=== PATIENT | male | born 1960 | race Caucasian/White ===

== ENCOUNTER 2018-04-10 14:35 | Emergency (ER) | payer BC, SELFPAY ==
[2018-04-10 14:35] VITALS: BP 168/85; PULSE 74; RESP 16; TEMP 36.7; O2SAT 98; BMI 41.1
--- NOTE | 2018-04-10 15:26 | RAD_ITS ---
STUDY: X-RAY - RIGHT FOOT CLINICAL: Male, 58 years old. Stepped on a piece of glass TECHNIQUE: 3 view(s) of the foot. COMPARISON: None. FINDINGS: Normal talus, calcaneus, and tarsal bones. Normal visualized subtalar, talonavicular, calcaneocuboid, tarsal and tarsometatarsal articulations. Normal metatarsi. There is degenerative arthrosis of the metatarsophalangeal joint of the hallux with a hallux valgus deformity. Normal tibial and fibular sesamoid bones. Normal interphalangeal joint of the great toe. Normal phalanges of the great toe. Normal second through fifth metatarsophalangeal joints. Normal interphalangeal joints and phalanges of the lesser toes. The soft tissue structures are unremarkable. RAD/Foot min 3 Views IMPRESSION: No radiopaque foreign body. Electronically Signed: Lizandro Gamez MD at 16:42 EST , Service support ,
--- NOTE | 2018-04-10 15:29 | ED.DCSUM_ITS ---
- ER Visit Summary Date of Service: 04/10/18 Chief Complaint: [] Glass foreign body right foot History of Present Illness: The patient is a 58 M [] stepped on glass bottle feels foreign body retained could not get it out not sure about tetanus status would like to check with family doctor before he is given tetanus update no other complaints Physical Examination: [] His general exam is unremarkable see the template, his right foot there is a small curvilinear laceration to the ball of the plantar surface right foot there is an obvious foreign body there, the rest of the foot is unremarkable this appears superficial, the area was locally blocked with lidocaine cleansed irrigated and then remove the foreign body removed without difficulty no retained foreign body was apparent afterwards, it was cleansed and irrigated again, sterile dressing was applied x-rays obtained X-ray shows no signs of retained foreign body he understands the concept of occult injury other occult processes, he is instructed on wound care Keflex both his family doctor the next few days return for change in symptoms or signs of Test Results: [] Emergency Department Course and Treatment: [] Treatment Plan: [] Disposition: [] Home stable Impression: [] Glass foreign body plantar surface right foot removed This note was generated with [employer] dictation software. It may contain incorrect words, spelling, and punctuation that were not noted in review of the chart prior to signing ED Disposition - Plan for ED Patient: Chief Complaint: Foreign Body
--- NOTE | 2018-04-10 15:29 | ED.DEP ---
ED Disposition - Plan for ED Patient: Chief Complaint: Foreign Body Instructions: ED Foreign Body Soft Tissue, ED Wound Puncture Foot Prescriptions: Cephalexin [Keflex] 500 mg PO Q6 #40 cap
[2018-04-10] MEDS: Cephalexin 250 MG Capsule 500 MG PO (16:01)
[2018-04-10 17:06] VITALS: BP 138/76; PULSE 82; RESP 16; O2SAT 98
== END 2018-04-10 17:07 | disposition home or self-care (01) ==
LOC: ED 15:49
PROVIDERS: Emergency Provider Emergency Medicine; Family Provider Family Medicine; PCP Family Medicine
DX: S90.851A Superficial foreign body, right foot, initial encounter (principal); W45.8XXA Other foreign body or object entering through skin, initial encounter; W25.XXXA Contact with sharp glass, initial encounter; Z18.81 Retained glass fragments
CPT/HCPCS: 73630; 99283

== ENCOUNTER 2018-07-20 21:00 | Emergency (ER) | payer BC, SELFPAY ==
[2018-07-20 21:00] VITALS: BP 133/86; PULSE 110; RESP 22; TEMP 36; O2SAT 100; BMI 42.5
--- NOTE | 2018-07-20 22:13 | ED.DCSUM_ITS ---
- ER Visit Summary Date of Service: 07/20/18 Chief Complaint: Lower leg laceration History of Present Illness: The patient is a 58 M was playing adult hockey league when he caught his ski and accidentally lacerated his left lower leg with his ice skate. Denies any other injuries. Does not believe his tetanus is up-to-date. Said there was pulsatile bleeding at the scene. Physical Examination: Well-appearing middle-aged male. Vital signs are stable. He is afebrile. HEENT exam unremarkable atraumatic neck nontender. Lungs clear to auscultation bilaterally. Heart regular rhythm no murmur. Chest wall nontender. Abdomen soft nontender. Extremities moves all 4. Neurovascular intact. His left lower leg anteriorly just above the ankle there is about 3 cm laceration. Involves the skin and subcu tissue. Dorsi and plantar flexion are intact. Currently there is no active bleeding but there is bleeding all over his sock and shoe. DP pulse appears to be intact. Left foot is neurovascular intact he is able to wiggle his toes. Normal touch sensation. Normal cap refil l. Foot is warm to the touch. No bony deformities. Left hip and knee are unremarkable. Test Results: None Emergency Department Course and Treatment: Let will be applied to the wound. Procedure note: Left lower leg laceration ER repair. Topical anesthetic with let. Locally anesthetized with lidocaine. Wound washed and irrigated thoroughly. With normal saline. Explored. Closed using simple interrupted 4-0 Ethilon sutures. Placed 6 simple interrupted sutures patient tolerated procedure well. Proper hemostasis and wound closure obtained. Patient tolerated procedure well. No bleeding while in the emergency department. Left foot warm and neurovascular intact with palpable DP pulse. Normal cap refill. Normal sensation. Treatment Plan: Wound care. Ice and elevate. Antibiotic ointment daily. Return for any signs of infection. Suture removal in 7-10 days. Patient does return if severe bleeding or significant swelling to his left lower extremity. Disposition: Discharge Impression: Acute left lower leg laceration 3 cm in ER repair Tetanus updated This note was generated with [employer] dictation software. It may contain incorrect words, spelling, and punctuation that were not noted in review of the chart prior to signing ED Disposition - Plan for ED Patient: Referrals: Niko Villa MD [Primary Care Provider] -
[2018-07-20] MEDS: Diphth,Pertuss(Acell),Tet Vac 0.5 ML Vial IM (22:30)
[2018-07-20] MEDS: Lidocaine/Epi/Tetracaine 50 ML 1 APPLIC TOPICAL (22:31)
[2018-07-20 22:36] VITALS: BP 149/72; PULSE 71; RESP 16; O2SAT 97
--- NOTE | 2018-07-20 23:10 | ED.DEP ---
ED Disposition - Plan for ED Patient: Disposition: Home or Assisted Living Instructions: ED Laceration Ext Sutr Stap Tape Referrals: Niko Villa MD [Primary Care Provider] - 10 Day for suture removal Additional Instructions: Keep the area clean and dry. You may shower but dried off well when you are done. Apply antibiotic ointment daily. Tylenol Motrin for pain. Ice and elevate. Return immediately if fever, pus or significant swelling or fever. Suture removal 10 days.
--- NOTE | 2018-07-20 23:44 | ED.RN ---
PRIOR TO PT'S DISCHARGE, DOPPLER PULSE OF LEFT FOOT WAS OBTAINED, STRONG PULSE NOTED. DR. ADAIR INFORMED OF SAME.
== END 2018-07-20 23:26 | disposition home or self-care (01) ==
PROVIDERS: Emergency Provider Emergency Medicine; Family Provider Family Medicine; PCP Family Medicine
DX: S81.812A Laceration without foreign body, left lower leg, initial encounter (principal); W21.32XA Struck by skate blades, initial encounter; Y93.22 Activity, ice hockey; Y92.330 Ice skating rink (indoor) (outdoor) as the place of occurrence of the external cause; Y99.8 Other external cause status; Z23 Encounter for immunization
CPT/HCPCS: 12002; 90471; 90715; 99284

== ENCOUNTER 2018-08-02 08:25 | Emergency (ER) | payer BC, SELFPAY ==
[2018-08-02 08:27] VITALS: BP 158/97; PULSE 95; RESP 16; TEMP 36.7; O2SAT 98; BMI 41.4
--- NOTE | 2018-08-02 08:44 | ED.VISSUMM ---
- ER Visit Summary Date of Service: 08/02/18 Chief Complaint: Wound History of Present Illness: The patient is a 58 M who was seen here about 2 weeks ago for a laceration to his left leg. This was sutured. He followed up for suture removal at urgent care a few days ago and it was doing fine. He did have some dehiscence of the wound. Today he returned to urgent care because he was having some pain and redness to the area as well as seepage. No fever or systemic symptoms. Physical Examination: Afebrile and vitals normal. Alert and oriented patient has a 3 cm laceration left lower leg just proximal to the ankle on the medial aspect. This does show some dehiscence as well as a clear seepage. There is surrounding erythema about the size of the patient's palm. The area is also mildly tender. Calf soft and supple. Neurovascular intact distally. Test Results: None performed Emergency Department Course and Treatment: Patient has cellulitis associated with his laceration. There are no findings to suggest necrotizing fasciitis or more severe infection. Compartments are soft. He is neurovascular intact distally. Nothing to suggest osteomyelitis or a deeper infection. I believe he is appropriate for outpatient management with Bactrim and Keflex at this point. He was given wound care instructions. He will return for new or worsening robotics or other care. Treatment Plan: As above Disposition: Discharge Impression: 1. Left leg cellulitis This note was generated with [employer] dictation software. It may contain incorrect words, spelling, and punctuation that were not noted in review of the chart prior to signing ED Disposition - Plan for ED Patient: Referrals: Niko Villa MD [Primary Care Provider] -
--- NOTE | 2018-08-02 08:47 | ED.DEP ---
ED Disposition - Plan for ED Patient: Instructions: Cellulitis - Causes,Symptoms,Treating Prescriptions: Hydrocodone Bitart/Apap 5-325 [Morton 5MG-325MG] 1 tab PO Q6H PRN PRN 3 Days #10 tab PRN Reason: Pain Cephalexin [Keflex] 500 mg PO Q6 #28 cap Smz/Tmp Ds [Bactrim Ds] 1 tab PO BID #14 tab Referrals: Niko Villa MD [Primary Care Provider] -
[2018-08-02] MEDS: Cephalexin 250 MG Capsule 500 MG PO (08:51)
[2018-08-02] MEDS: Smz/Tmp Ds Tablet 1 TABLET PO (08:51)
== END 2018-08-02 08:59 | disposition home or self-care (01) ==
LOC: ED 08:43
PROVIDERS: Emergency Provider Emergency Medicine; Family Provider Family Medicine; PCP Family Medicine
DX: L03.116 Cellulitis of left lower limb (principal)
CPT/HCPCS: 99284

== ENCOUNTER 2021-04-21 11:17 | Day surgery (SDC) | payer OTHER, SELFPAY ==
[2021-04-21] VITALS (7 sets, daily range): BP systolic 120–152; BP diastolic 62–88; PULSE 63–78; RESP 16; TEMP 36.2–36.7; O2SAT 94–99; BMI 41.1
--- NOTE | 2021-04-21 | GASB_PTH ---
PATIENT: ZORAIDA VERONICA LOC: EN U#:[id number] AGE/SX: 61/M ROOM: RE04/21/[address]: Dr. Calixto Oh MD : 1960 BED: DIS: 04/21/2021 SPEC #: [id number] RECD: 04/21/21 14:58 STATUS: JULIANO REKavin #: [id number] CAMERON: 04/21/21 00:[address]: Calixto Oh DEPT: SURGICAL PATHOLOGY RECD BY: Chely Chandler ENTERED: 04/22/21 08:35 SP TYPE: Gastric Bx OTHR DR: Dr. Niko Villa MD Tissues: Gastric mucous membrane Procedures: Surgery Specimen Level IV HEADER OPERATION: Colonoscopy, EGD ([facility] [place]) PRE-OP DIAGNOSIS: Screening colonoscopy, dysphagia, history of esophageal stenosis TISSUE SUBMITTED: Antrum biopsy for H. pylori and path MICROSCOPIC DIAGNOSIS Gastric antrum, biopsy: Mild chronic gastritis. AM:wilma 04/23/2021 COMMENT The results of immunohistochemistry for Helicobacter pylori will be reported separately ([id number]). MICROSCOPIC DESCRIPTION Slides are reviewed. GROSS DESCRIPTION Received in fixative is one container labeled with the patient's name and designated antrum biopsy. The specimen consists of one irregular fragment of light franklin soft tissue that measures 0.6 x 0.5 x 0.1 cm. The specimen is totally submitted in one cassette. / AM:wilma 04/22/21 TC:3 CPT: 55720
[2021-04-21] MEDS: Lactated Ringers 1,000 ML 15 ML IV (11:40)
--- NOTE | 2021-04-21 12:01 | PCM.HP.BLA ---
History and Physical Date of Admission: 04/21/21 HISTORY AND PHYSICAL ? Sebastian Carreno 1960 ? REFERRING PHYSICIAN: Blayne Villa,* ? CHIEF COMPLAINT: Consult (Colonoscopy & EGD) ? HPI: The patient is a 60 year old male referred for endoscopy. Sebastian notes no colon complaints. Patient denies any change in bowel habits, weight changes, blood in stools, black tarry stools or abdominal pain. Denies family history of colon issues. ? The patient NOTES chronic upper GI complaints. Notes constant issues with food sticking-worse with meats such as pork and shredded chicken. States this has been worsening over the last year. Symptoms exacerbated with stress/ ? Sebastian has undergone prior endoscopy. Patient underwent upper and lower endoscopy 04/17/[address] Nelson under [facility]. Findings at that time included diverticulosis. 5 year repeat colonoscopy was recommended due to a suboptimal bowel prep. ? EGD showed, per Dr. Nelson's report: ? Findings: ? ? ?One mild benign-appearing, intrinsic stenosis was found. A TTS dilator ? ? ?was passed through the scope. Dilation with a 15-16.5-18 mm balloon (to ? ? ?a maximum balloon size of 18 mm) dilator was performed. The dilation ? ? ?site was examined and showed moderate improvement in luminal narrowing. ? ? ?Estimated blood loss was minimal. ? ? ?The entire examined stomach was normal. Biopsies were taken with a cold ? ? ?forceps for histology. Estimated blood loss was minimal. ? ? ?The examined duodenum was normal. Impression: ? - Benign-appearing esophageal stenosis. Dilated. ? - Normal stomach. Biopsied. ? - Normal examined duodenum. ? Patient denies any problems with sedation in the past. Denies chest pain, shortness of breath or recent hospitalizations. ? PAST MEDICAL HISTORY PAST MEDICAL HISTORY Diagnosis Date ? DIAPHRAGMATIC HERNIA 02/27/2005 ? Esophageal reflux 02/27/2005 ? Esophagitis, unspecified 02/27/2005 ? HYPERTENSION NOS 02/27/2005 ? Impaired fasting glucose 01/19/2014 ? LUMBAR DISC DISPLACEMENT 02/08/2007 ? 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 Obstructive sleep apnea ? ? PURE HYPERCHOLESTEROLEM 02/27/2005 ? STOMACH FUNCTION DIS NEC 02/27/2005 ? ? PAST SURGICAL HISTORY PAST SURGICAL HISTORY Procedure Laterality Date ? APPENDECTOMY ? 2004 ? COLONOSCOP W/ OR W/O BRSH SPEC ? 04/17/15 ? Colonoscopy ? EGD ? ? ? EGD W/O OR W/BRUSH/WASH ? 04/17/15 ? EGD ? PAST SURGICAL HISTORY OF ? 2002 ? vasectomy reversal ? ? ? CURRENT MEDICATIONS No current outpatient medications on file. ? No current facility-administered medications for this visit. ? ? ALLERGIES: Patient has no known allergies. ? PERSONAL HISTORY: SOCIAL HISTORY Social History ? Tobacco Use ? Smoking status: Never Smoker ? Smokeless tobacco: Never Used Substance Use Topics ? Alcohol use: Yes ? ? Alcohol/week: 25.0 standard drinks ? ? Types: 10 Mixed Drinks per week ? ? Comment: mixed drink - 2 drinks 3 times a week ? Drug use: No ? FAMILY HISTORY: FAMILY HISTORY FAMILY HISTORY Problem Relation Age of Onset ? Hypertension Mother ? ? Lipids Mother ? ? Lipids Father ? ? Hypertension Father ? ? None Sister ? ? Diabetes Maternal Grandmother ? ? Coronary Artery Disease Paternal Uncle ? ? HI, uncles ? ? REVIEW OF SYMPTOMS: The review of systems data was entered by the nurse and reviewed by me ? Nursing Notes: Yuli Don LPN 01/21/2021 8:09 AM Signed REVIEW OF SYSTEMS: General: The patient denies fatigue, denies weight loss, denies weight gain, denies feeling hot, and denies feelings of cold. Eyes: The patient denies glaucoma, denies eye injury/surgery, does not wear glasses or contacts. Ear/Nose/Throat: The patient denies allergies, denies hayfever, denies ear infections, and denies bloody noses. Cardiovascular: The patient denies chest pain, denies heart disease, denies high blood pressure,denies cardiac stent, denies prior heart attack, denies irregular heart beat, denies high cholesterol, denies poor circulation, denies heart failure, other cardiac issues, denies claudication, denies cold feet, denies peripheral arterial stent. Respiratory: The patient denies tuberculosis, denies pneumonia, denies frequent cough, denies pulmonary embolism, denies shortness of breath, and denies coughing up blood. Gastrointestinal: The patient denies difficulty swallowing, denies acid reflux, denies ulcers, denies vomiting, denies jaundice/hepatitis, denies gallbladder problems, denies black or tarry stools, denies hemorrhoids, denies bleeding from rectum, denies diverticulitis, denies constipation, denies diarrhea, denies loss of stool control, and denies hernias. Kidney/Bladder: The patient denies kidney stones, denies urine infections, and denies bloody urine. Skin: The patient denies a history of skin cancer, denies bleeding/changing moles, and denies a history of skin rash. Neurologic: The patient denies a history of epilepsy/convulsions, denies headaches, denies head/spinal injuries, and denies stroke/TIA. Psychiatric: The patient denies psychiatric medications, denies depression, and denies voices, denies substance abuse. Endocrine: The patient denies thyroid disorders, denies diabetes, and denies hormonal problems. Hematologic: The patient denies a history of bruising, denies bleeding, and denies anemia, denies blood clots. Infections: The patient NOTES a history of measles and mumps, denies rheumatic fever, and denies sexually transmitted diseases. Musculoskeletal: The patient denies back pain/injury, denies back problems, NOTES sciatica, denies knee/foot trouble, denies arthritis, or denies gout. ? ? When was patient's last Mammogram screening? N/A ? Last Colonoscopy: 04/17/2015 ? Yuli Don LPN I have confirmed and edited as necessary, the PFSH and ROS obtained by others. Steph May PA-C ? PHYSICAL EXAMINATION: ? General: The patient is 60 year old male, well nourished, well hydrated in no acute distress. The patient is oriented to time, place, and person. ? VITALS: Blood pressure 164/84, pulse 99, temperature (!) 35.7 ?C (96.3 ?F), height 177.8 cm (5' 10), weight 132.5 kg (292 lb), SpO2 97 %. Body mass index is 41.9 kg/m?. ? HEENT: Normal cephalic, ataumatic, pupils are equally round, sclera are anicteric, mucous membranes are moist, oropharynx is clear. Neck has no masses, asymmetry or lymphadenopathy. ? Respiratory: Clear to auscultation and percussion. Normal respiratory excursion and pattern. ? Cardiac: Examination is regular rate and rhythm. Normal S1/S2 ? Abdominal exam: Soft, nontender, with no palpable masses. No hepatosplenomegaly. No palpable hernias. ? Extremities: no clubbing, cyanosis or edema. No adenopathy. ? LABORATORY VALUES: As Noted ? RADIOLOGIC STUDIES: As Noted ? ? Assessment IMPRESSION: encounter for screening colonoscopy. Dysphagia and history of esophageal stenosis requiring balloon bilation ? PLAN: I have reviewed my findings with the Dr. Oh. Will plan for colonoscopy, as well as EGD with possible balloon dilation. Images from prior endoscopy were reviewed with Dr. Oh who noted stricture appeared to be in the distal esophagus. Patient previously required 18 mm balloon dilation ? Procedure to be performed at [facility] with [facility]. We discussed the risks and benefits of the planned endoscopy. I have informed the patient that complications can occur including failure to complete the endoscopy and perforation. The patient had the opportunity to ask questions concerning the planned endoscopy. My staff has also explained the procedure to the patient in understandable terms and has given the patient printed material concerning the procedure. The patient freely consents to surgery. ? The patient was offered a surgery/procedure at a [facility] facility. I have counseled the patient regarding the risk of exposure to and/or potential harm posed by the COVID-19 virus with having a surgery/procedure at this time versus the risk of? delaying the surgery/procedure. It is not possible to know either the risk of delaying the surgery or procedure or chance of getting an infection with perfect accuracy, but a joint decision was made between the patient and myself?to proceed at this time with endoscopy. I plan to use Golytely bowel preparation ? We will plan for [facility]. ? Will plan for 18 mm balloon dilation for distal esophageal stricture per Dr. Oh ? ? ? Diagnoses: (K22.2) Esophageal stenosis (primary encounter diagnosis) (Z12.11) Screening for colon cancer (R13.10) Dysphagia, unspecified type ? I spent a total of 34 minutes on the date of the service which included preparing to see the patient, [id number] patient care, completing clinical documentation, obtaining and/or reviewing separately obtained history, performing a medically appropriate examination, counseling and educating the patient/family/caregiver, ordering medications, tests, or procedures, communicating with other HCPs (not separately reported) and care coordination (not separately reported). ? ? Steph May PA-C Note Details cc I have re-examined the patient. There are no clinical changes since date of exam.
--- NOTE | 2021-04-21 12:45 | IMM_PTH ---
PATIENT: ZORAIDA VERONICA LOC: EN U#:[id number] AGE/SX: 61/M ROOM: RE04/21/[address]: Dr. Calixto Oh MD : 1960 BED: DIS: 04/21/2021 SPEC #: [id number] RECD: 04/22/21 11:00 STATUS: JULIANO REQ #: [id number] CAMERON: 04/21/21 12:[address]: Calixto Oh DEPT: IMMUNOHISTOCHEMISTRY RECD BY: Lissy Sims ENTERED: 04/22/21 11:01 SP TYPE: IMMUNO OTHR DR: Dr. Niko Villa MD Tissues: Stomach, NOS Procedures: H Pylori (initial) PHYSICIAN & INSTITUTION [place] [id number] SPECIMEN INFORMATION: Tissue Source: Antrum biopsy Clinical Info: Screening colonoscopy, dysphagia, esophageal stenosis Specimen Number: [id number] CPT code: 21947 METHODOLOGY: Deparaffinized sections of prefer/formalin-fixed tissue or PAP/DQ stained slides are incubated with monoclonal/polyclonal antibodies/oligonucleotide probes. Localization is made via biotin free immunoperoxidase method. Appropriate controls are performed and reacted as expected. Results on target cell population are indicated in the following table: RESULTS: ANTIBODY / CLONE RESULT H Pylori (polyclonal) negative These tests were developed and their performance characteristics determined by [facility]. They may not have been cleared or approved by the U.S. Food and Drug Administration. The FDA has determined that such clearance or approval is not necessary. INTERPRETATION: Antrum biopsy: Negative for Helicobacter pylori organisms. AM:wilma 04/23/2021
--- NOTE | 2021-04-21 13:16 | OP.CCLET_ITS ---
04/21/2021 Niko Villa Re : Upper GI endoscopy procedure for Sebastian Carreno [place] This procedure was performed on Wednesday, April 21, 2021. My impressions and recommendations are as follows: Impressions : - Benign-appearing esophageal stenosis. Dilated. - Normal stomach. Biopsied. - Normal examined duodenum. No specimens collected. - Medium-sized hiatal hernia. Recommendations : - Discharge patient to home. - Resume previous diet. - Continue present medications. - Await pathology results. - Repeat upper endoscopy in 5 years for surveillance. - Return to physician speech correction assistant in 1 week. My findings are described in the full procedure note, which is enclosed. If I can be of further assistance, please feel free to contact me at Doctor phone number(s): , Work: . Sincerely, MD Calixto Riojas MD 04/21/2021 1:16:18 PM This report has been signed electronically.
--- NOTE | 2021-04-21 13:16 | OP.EGD_ITS ---
Patient Name: Sebastian Carreno Procedure Date: 04/21/2021 12:46 PM Date of : 1960 Age: 61 Procedure: Upper GI endoscopy Indications: Dysphagia Providers: Calixto Oh MD Medicines: See the Anesthesia note for documentation of the administered medications Patient Profile: This is a 61 year old male. Refer to note in patient chart for documentation of history and physical. Complications: No immediate complications. Estimated blood loss: Minimal. Procedure: Pre-Anesthesia Assessment: - Prior to the procedure, a History and Physical was performed, and patient medications and allergies were reviewed. The patient's tolerance of previous anesthesia was also reviewed. The risks and benefits of the procedure and the sedation options and risks were discussed with the patient. All questions were answered, and informed consent was obtained. Prior Anticoagulants: The patient has taken no previous anticoagulant or antiplatelet agents. ASA Grade Assessment: III - A patient with severe systemic disease. After reviewing the risks and benefits, the patient was deemed in satisfactory condition to undergo the procedure. After obtaining informed consent, the endoscope was passed under direct vision. Throughout the procedure, the patient's blood pressure, pulse, and oxygen saturations were monitored continuously. The Endoscope was introduced through the mouth, and advanced to the second part of duodenum. The upper GI endoscopy was accomplished without difficulty. The patient tolerated the procedure well. Scope In: 12:51:08 PM Scope Out: 12:56:34 PM Total Procedure Duration Time 0 hours 5 minutes 26 seconds Findings: One benign-appearing, intrinsic stenosis was found in the distal esophagus. This stenosis was mildly severe and measured 2 mm (inner diameter) x less than one cm (in length). The stenosis was traversed. A TTS dilator was passed through the scope. Dilation with an 18-19-20 mm balloon dilator was performed to 19 mm. The dilation site was examined and showed complete resolution of luminal narrowing. The entire examined stomach was normal. Biopsies were taken with a cold forceps for Helicobacter pylori testing. The examined duodenum was normal. No biopsies or other specimens were collected for this exam. A medium-sized hiatal hernia was present. Impression: - Benign-appearing esophageal stenosis. Dilated. - Normal stomach. Biopsied. - Normal examined duodenum. No specimens collected. - Medium-sized hiatal hernia. Recommendation: - Discharge patient to home. - Resume previous diet. - Continue present medications. - Await pathology results. - Repeat upper endoscopy in 5 years for surveillance. - Return to physician accounts receivable assistant in 1 week. Procedure Code(s): --- Professional --- 94131, Esophagogastroduodenoscopy, flexible, transoral; with transendoscopic balloon dilation of esophagus (less than 30 mm diameter) Diagnosis Code(s): --- Professional --- K22.2, Esophageal obstruction K44.9, Diaphragmatic hernia without obstruction or gangrene R13.10, Dysphagia, unspecified CPT copyright 2017 [employer]. All rights reserved. The codes documented in this report are preliminary and upon double bass player review may be revised to meet current compliance requirements. MD Calixto Riojas MD 04/21/2021 1:16:18 PM This report has been signed electronically. Number of Addenda: 0 Note Initiated On: 04/21/2021 12:46 PM
--- NOTE | 2021-04-21 13:19 | OP.CCLET_ITS ---
04/21/2021 Niko Villa Re : Colonoscopy procedure for Sebastian Yancey Allen This procedure was performed on Wednesday, April 21, 2021. My impressions and recommendations are as follows: Impressions : - Diverticulosis in the sigmoid colon and in the descending colon. No specimens collected. - Non-bleeding internal hemorrhoids. No specimens collected. - The examination was otherwise normal. Recommendations : - Discharge patient to home. - Resume previous diet. - Continue present medications. - Repeat colonoscopy in 10 years for screening purposes. - Return to physician pathologist assistant in 1 week. My findings are described in the full procedure note, which is enclosed. If I can be of further assistance, please feel free to contact me at Doctor phone number(s): , Work: . Sincerely, MD Calixto Riojas MD 04/21/2021 1:18:51 PM This report has been signed electronically.
--- NOTE | 2021-04-21 13:19 | OP.COLON_ITS ---
Patient Name: Sebastian Carreno Procedure Date: 04/21/2021 12:57 PM Date of : 1960 Age: 61 Procedure: Colonoscopy Indications: Screening for colorectal malignant neoplasm Providers: Calixto Oh MD Medicines: See the Anesthesia note for documentation of the administered medications Patient Profile: This is a 61 year old male. Refer to note in patient chart for documentation of history and physical. Last Colonoscopy: 2014. Complications: No immediate complications. Estimated blood loss: None. Procedure: Pre-Anesthesia Assessment: - Prior to the procedure, a History and Physical was performed, and patient medications and allergies were reviewed. The patient's tolerance of previous anesthesia was also reviewed. The risks and benefits of the procedure and the sedation options and risks were discussed with the patient. All questions were answered, and informed consent was obtained. Prior Anticoagulants: The patient has taken no previous anticoagulant or antiplatelet agents. ASA Grade Assessment: III - A patient with severe systemic disease. After reviewing the risks and benefits, the patient was deemed in satisfactory condition to undergo the procedure. After I obtained informed consent, the scope was passed under direct vision. Throughout the procedure, the patient's blood pressure, pulse, and oxygen saturations were monitored continuously. The colonoscope was introduced through the anus and advanced to the cecum, identified by appendiceal orifice and ileocecal valve. The colonoscopy was performed without difficulty. The patient tolerated the procedure well. The quality of the bowel preparation was good. Scope In: 12:58:52 PM Scope Withdrawal Time 0 hours 6 minutes 57 seconds Scope Out: 1:11:14 PM Total Procedure Duration Time 0 hours 12 minutes 22 seconds Findings: Multiple small-mouthed diverticula were found in the sigmoid colon and descending colon. No biopsies or other specimens were collected for this exam. Non-bleeding internal hemorrhoids were found during retroflexion. The hemorrhoids were mild and small. No biopsies or other specimens were collected for this exam. The exam was otherwise without abnormality. Impression: - Diverticulosis in the sigmoid colon and in the descending colon. No specimens collected. - Non-bleeding internal hemorrhoids. No specimens collected. - The examination was otherwise normal. Recommendation: - Discharge patient to home. - Resume previous diet. - Continue present medications. - Repeat colonoscopy in 10 years for screening purposes. - Return to physician assistant manager trainee in 1 week. Procedure Code(s): --- Professional --- 43327, Colonoscopy, flexible; diagnostic, including collection of specimen(s) by brushing or washing, when performed (separate procedure) Diagnosis Code(s): --- Professional --- Z12.11, Encounter for screening for malignant neoplasm of colon K64.8, Other hemorrhoids K57.30, Diverticulosis of large intestine without perforation or abscess without bleeding CPT copyright 2017 [employer]. All rights reserved. The codes documented in this report are preliminary and upon mold preparer review may be revised to meet current compliance requirements. MD Calixto Riojas MD 04/21/2021 1:18:51 PM This report has been signed electronically. Number of Addenda: 0 Note Initiated On: 04/21/2021 12:57 PM
== END 2021-04-21 13:54 | disposition home or self-care (01) ==
LOC: EN 11:20 → AC 11:22
PROVIDERS: PCP Family Medicine; Referring Provider Family Medicine; Visit Provider Surgery
PROC: 0DJD8ZZ Inspection of Lower Intestinal Tract, Via Natural or Artificial Opening Endoscopic (ICD-10-PCS; CPT 45378; principal; 2021-04-21 12:40)
DX: Z12.11 Encounter for screening for malignant neoplasm of colon (principal); K57.30 Diverticulosis of large intestine without perforation or abscess without bleeding; K64.8 Other hemorrhoids; K29.50 Unspecified chronic gastritis without bleeding; K44.9 Diaphragmatic hernia without obstruction or gangrene; K22.2 Esophageal obstruction; G47.33 Obstructive sleep apnea (adult) (pediatric); Z90.49 Acquired absence of other specified parts of digestive tract
CPT/HCPCS: 43239; 43249; 45378; 88305; 88342; J1610; J2405